=== PATIENT | male | born 1985 | race Caucasian/White ===

== ENCOUNTER 2016-07-11 14:45 | Emergency (ER) | payer SELFPAY ==
[~2016-07-11] VITALS: Ht 182.9 cm; Wt 93.9 kg
[2016-07-11 15:01] VITALS: BP 128/72
--- NOTE | 2016-07-11 18:14 | NUR ---
PATIENT LEFT WITHOUT BEING SEEN BY DR. JOHNSON. NO FURTHER CARE PROVIDED FOR PATIENT.
== END 2016-07-11 18:14 | disposition left against medical advice (07) ==
LOC: MED 14:45
DX: R05 Cough (principal); R07.89 Other chest pain; M25.519 Pain in unspecified shoulder; Z53.21 Procedure and treatment not carried out due to patient leaving prior to being seen by health care provider

== ENCOUNTER 2016-09-22 19:39 | Emergency (ER) | payer SELFPAY ==
[~2016-09-22] VITALS: Ht 185.4 cm; Wt 91.2 kg
[2016-09-22 20:30] VITALS: BP 121/76
--- NOTE | 2016-09-22 22:36 | NUR ---
PATIENT LEFT WITHOUT BEING SEEN BY DR. BERMAN. NO FURTHER CARE PROVIDED FOR PATIENT.
== END 2016-09-22 22:36 | disposition left against medical advice (07) ==
LOC: MED 19:39
DX: M25.511 Pain in right shoulder (principal); Z53.21 Procedure and treatment not carried out due to patient leaving prior to being seen by health care provider

== ENCOUNTER 2020-04-07 19:04 | Emergency (ER) | payer MEDICAID ==
[~2020-04-07] VITALS: Ht 180.3 cm; Wt 103.9 kg
[2020-04-07 19:07] VITALS: BP 119/86
--- NOTE | 2020-04-07 19:18 | NUR ---
ERMD AT BEDSIDE FOR MEDICAL EVALUATION
[2020-04-07] MEDS ORDERED: KETOROLAC 15 MG/ML VIAL IM ONE (19:20)
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
[2020-04-07 20:04] VITALS: BP 119/86
--- NOTE | 2020-04-07 20:04 | NUR ---
Patient discharged with v/s stable. Written and verbal after care instructions given and explained. Patient verbalized understanding. Ambulatory with steady gait. All questions addressed prior to discharge. Advised to follow up with PMD.
== END 2020-04-07 20:06 | disposition home or self-care (01) ==
LOC: MED 19:04
DX: M54.5 Low back pain (principal); Z88.5 Allergy status to narcotic agent
CPT/HCPCS: 96372; 99283; J1885

== ENCOUNTER 2021-11-15 20:29 | Emergency (ER) | payer MEDICAID, OTHER ==
[~2021-11-15] VITALS: Ht 182.9 cm; Wt 95.3 kg
[2021-11-15 20:30] VITALS: BP 117/78
--- NOTE | 2021-11-15 20:30 | NUR ---
to bed ambulatory
[2021-11-15] MEDS ORDERED: TETRACAINE HCL/PF 0.5% OPTH 4 ML BTL OP ONE (21:00)
[2021-11-15] MEDS ORDERED: FLUORESCEIN OPTH STRIP 1 MG OP ONE (21:00)
--- NOTE | 2021-11-15 21:07 | NUR ---
ER MD at bedside for examination
[2021-11-15 21:40] VITALS: BP 117/78
--- NOTE | 2021-11-15 21:40 | NUR ---
Patient discharged. Written and verbal after care instructions given and explained. Patient verbalized understanding. Ambulatory with steady gait. ID band removed. All questions addressed prior to discharge. Advised to follow up with PMD.
== END 2021-11-15 21:40 | disposition home or self-care (01) ==
LOC: MED 20:29
DX: T15.11XA Foreign body in conjunctival sac, right eye, initial encounter (principal); J45.909 Unspecified asthma, uncomplicated; Z91.018 Allergy to other foods; Z88.5 Allergy status to narcotic agent; X58.XXXA Exposure to other specified factors, initial encounter; Y93.89 Activity, other specified; Y92.89 Other specified places as the place of occurrence of the external cause; Y99.8 Other external cause status
CPT/HCPCS: 67938; 99284

== ENCOUNTER 2022-01-18 19:16 | Emergency (ER) | payer OTHER ==
[~2022-01-18] VITALS: Ht 182.9 cm; Wt 99.8 kg
--- NOTE | 2022-01-18 19:49 | NUR ---
TO LOBBY FOLLOWING TRIAGE
--- NOTE | 2022-01-18 20:45 | NUR ---
Dr. Teran examining patient.
--- NOTE | 2022-01-18 21:11 | NUR ---
PT TAKEN TO CT
--- NOTE | 2022-01-18 21:19 | NUR ---
PT RETURN FROM CT
[2022-01-18 21:20] LABS: BASOPHILS % (AUTO) 0.6 % (0.0-2.0); EOSINOPHILS # (AUTO) 0.1 K/uL (0-0.4); EOSINOPHILS % (AUTO) 0.9 % (0.0-4.0); HEMATOCRIT 42.9 % (36-52); HEMOGLOBIN 14.7 g/dL (12.0-18.0); LYMPHOCYTES # (AUTO) 1.6 K/uL (2.0-11.5); LYMPHOCYTES % (AUTO) 22.3 % (20.5-51.1); MEAN CORPUSCULAR HEMOGLOBIN 29 pg (27-31); MEAN CORPUSCULAR HGB CONC 34 g/dL (33-37); MEAN CORPUSCULAR VOLUME 84.1 fL (80-94); MONOCYTES # (AUTO) 0.5 K/uL (0.8-1.0); MONOCYTES % (AUTO) 7.5 % (1.7-9.3); NEUTROPHILS % (AUTO) 68.7 % (42.2-75.2); PLATELET COUNT (AUTO) 232 K/uL (140-450); RED CELL DISTRIBUTION WIDTH 13.1 % (11.6-13.7); WHITE BLOOD COUNT (AUTO) 7.3 K/uL (4.8-10.8)
[2022-01-18 21:37] LABS: ALBUMIN 3.9 g/dL (3.4-5.0); CARBON DIOXIDE 30.3 mmol/L (21-32); CREATININE 1.2 mg/dL (0.6-1.3); POTASSIUM 4.3 mmol/L (3.5-5.1); TOTAL BILIRUBIN 0.6 mg/dL (0.0-1.0)
[2022-01-18] MEDS ORDERED: ONDA-188 PO (22:52)
[2022-01-18] MEDS ORDERED: IBUP-2213 PO (22:52)
--- NOTE | 2022-01-18 22:56 | NUR ---
Patient left without D/C papers.
== END 2022-01-18 22:56 | disposition home or self-care (01) ==
LOC: MED 19:16
DX: R10.9 Unspecified abdominal pain (principal)
CPT/HCPCS: 36415; 80053; 83605; 83690; 85025; 99284

== ENCOUNTER 2022-11-09 17:23 | Emergency (ER) | payer OTHER ==
[~2022-11-09] VITALS: Ht 180.3 cm; Wt 110.3 kg
[~2022-11-09 17:23] MED LIST: IBUP-2213 PO; ONDA-188 PO
[2022-11-09 17:39] VITALS: BP 108/63; PULSE 86; RESP 20; TEMP 98.4; O2SAT 96
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
--- NOTE | 2022-11-09 18:22 | NUR ---
Dr. Santillan evaluating patient at bedside.
[2022-11-09] MEDS ORDERED: ACETAMINOPHEN EXTRA STRENGTH 500 MG TAB PO ONE (18:30)
[2022-11-09] MEDS ORDERED: ACET-10509 PO (18:33)
--- NOTE | 2022-11-09 19:13 | NUR ---
Report given to KAELA Carmona for transfer of care.
--- NOTE | 2022-11-09 19:20 | NUR ---
Patient resting in bed, A/Ox4, chest rise and fall symmetrical, no c/o pain or s/s of distress, on monitor. Patient left arm assessed, patient has feeling in all fingers and thumb, wound color is pink, wound is warm to touch, no s/s of infection.
[2022-11-09 19:22] VITALS: BP 111/72; PULSE 81; RESP 18; TEMP 98.4; O2SAT 99
== END 2022-11-09 19:22 | disposition home or self-care (01) ==
LOC: MED 17:23
DX: M25.532 Pain in left wrist (principal); J45.909 Unspecified asthma, uncomplicated; Z48.00 Encounter for change or removal of nonsurgical wound dressing; Z88.5 Allergy status to narcotic agent; Z79.899 Other long term (current) drug therapy
CPT/HCPCS: 99282

== ENCOUNTER 2023-10-19 01:25 | Emergency (ER) | payer OTHER ==
[~2023-10-19] VITALS: Ht 180.3 cm; Wt 99.8 kg
[~2023-10-19 01:25] MED LIST changes: +ACET-10509 PO; +BACI-418 TP
[2023-10-19 02:20] VITALS: BP 103/74; PULSE 86; RESP 18; TEMP 97; O2SAT 98
[2023-10-19] MEDS: ACETAMINOPHEN EXTRA STRENGTH 500 MG TAB PO ONE (04:21)
[2023-10-19 05:42] VITALS: BP 103/74; PULSE 86; RESP 18; TEMP 97; O2SAT 98
== END 2023-10-19 05:42 | disposition home or self-care (01) ==
LOC: MED 01:25
DX: S02.2XXA Fracture of nasal bones, initial encounter for closed fracture (principal); S01.81XA Laceration without foreign body of other part of head, initial encounter; S01.01XA Laceration without foreign body of scalp, initial encounter; J45.909 Unspecified asthma, uncomplicated; Z79.1 Long term (current) use of non-steroidal anti-inflammatories (NSAID); Z79.899 Other long term (current) drug therapy; Z91.018 Allergy to other foods; Z88.5 Allergy status to narcotic agent; W01.0XXA Fall on same level from slipping, tripping and stumbling without subsequent striking against object, initial encounter; Y93.89 Activity, other specified; Y92.89 Other specified places as the place of occurrence of the external cause; Y99.8 Other external cause status
CPT/HCPCS: 12014; 12015; 70450; 99284

== ENCOUNTER 2023-12-25 16:42 | Emergency (ER) | payer OTHER ==
[~2023-12-25] VITALS: Ht 180.3 cm; Wt 108.4 kg
[~2023-12-25 16:42] MED LIST changes: -ACET-10509 PO; +ACET500T99 PO
[2023-12-25 16:58] VITALS: BP 118/79; PULSE 92; RESP 15; TEMP 98.2; O2SAT 97
[2023-12-26] MEDS ORDERED: IBUP-2213 PO (12:43)
[2023-12-26] MEDS ORDERED: CEPH-588 PO (12:43)
== END 2023-12-25 18:10 | disposition left against medical advice (07) ==
LOC: MED 16:42
DX: L03.011 Cellulitis of right finger (principal); J45.909 Unspecified asthma, uncomplicated; Z79.1 Long term (current) use of non-steroidal anti-inflammatories (NSAID); Z79.899 Other long term (current) drug therapy; Z88.5 Allergy status to narcotic agent
CPT/HCPCS: 99281

== ENCOUNTER 2023-12-26 12:20 | Emergency (ER) | payer OTHER ==
[~2023-12-26] VITALS: Ht 180.3 cm; Wt 108.9 kg
[2023-12-26 12:23] VITALS: BP 115/83; PULSE 85; RESP 22; TEMP 98.2; O2SAT 97
[2023-12-26] MEDS ORDERED: CEPH-588 PO (12:43)
[2023-12-26] MEDS ORDERED: IBUP-2213 PO (12:43)
[2023-12-26] MEDS ORDERED: LIDOCAINE MPF 1% 5 ML ONE (12:45)
[2023-12-26] MEDS ORDERED: cefTRIAXone 250 MG VIAL ONE (12:45)
[2023-12-26] MEDS: cefTRIAXone 250 MG in LIDOCAINE MPF 1% 0.9 ML IM ONE (12:56)
== END 2023-12-26 13:01 | disposition home or self-care (01) ==
LOC: MED 12:20
DX: L03.011 Cellulitis of right finger (principal); J45.909 Unspecified asthma, uncomplicated; Z79.899 Other long term (current) drug therapy; Z88.5 Allergy status to narcotic agent
CPT/HCPCS: 10060; 96372; 99283; J0696; J2001

== ENCOUNTER 2024-01-09 01:54 | Emergency (ER) | payer OTHER ==
[~2024-01-09] VITALS: Ht 180.3 cm; Wt 108.0 kg
[~2024-01-09 01:54] MED LIST changes: +CEPH-588 PO
[2024-01-09 01:57] VITALS: BP 121/78; PULSE 95; RESP 18; TEMP 98.9; O2SAT 96
[2024-01-09] MEDS ORDERED: LIDOCAINE/EPI 1% 1:100000 20 ML VIAL INJ ONE (02:44)
[2024-01-09] MEDS: LIDOCAINE/EPI 1% 1:100000 20 ML VIAL INJ ONE (02:45)
[2024-01-09 03:00] VITALS: BP 121/78; PULSE 95; RESP 18; TEMP 98.9; O2SAT 96
[2024-01-09] MEDS ORDERED: SULF-59 PO (03:06)
== END 2024-01-09 03:00 | disposition home or self-care (01) ==
LOC: MED 01:54
DX: L02.414 Cutaneous abscess of left upper limb (principal); J45.909 Unspecified asthma, uncomplicated; Z79.899 Other long term (current) drug therapy; Z88.5 Allergy status to narcotic agent
CPT/HCPCS: 10060; 99283; J2001

== ENCOUNTER 2024-01-20 15:39 | Inpatient (IN) | payer OTHER ==
[~2024-01-20] VITALS: Ht 180.3 cm; Wt 107.2 kg
[~2024-01-20 15:39] MED LIST changes: +SULF-59 PO
[2024-01-20 15:48] VITALS: BP 113/78; PULSE 95; RESP 14; TEMP 97.3; O2SAT 97
[2024-01-20] MEDS ORDERED: VANCOMYCIN 1,000 MG VIAL ONE (16:38)
[2024-01-20] MEDS: VANCOMYCIN 1,000 MG in DEXTROSE 5% 250 ML IV ONE (16:54)
[2024-01-20 17:01] LABS: BASOPHILS # (AUTO) 0.1 K/uL (0.00-0.22); BASOPHILS % (AUTO) 0.7 % (0.0-2.0); EOSINOPHILS # (AUTO) 0.2 K/uL (0-0.4); EOSINOPHILS % (AUTO) 1.5 % (0.0-4.0); HEMATOCRIT 40.1 % (36-52); HEMOGLOBIN 13.4 g/dL (12.0-18.0); LYMPHOCYTES # (AUTO) 1.6 K/uL (2.0-11.5); LYMPHOCYTES % (AUTO) 14.5 % (20.5-51.1); MEAN CORPUSCULAR HEMOGLOBIN 28 pg (27-31); MEAN CORPUSCULAR HGB CONC 34 g/dL (33-37); MEAN CORPUSCULAR VOLUME 83.6 fL (80-94); MONOCYTES # (AUTO) 0.9 K/uL (0.8-1.0); MONOCYTES % (AUTO) 7.8 % (1.7-9.3); NEUTROPHILS # (AUTO) 8.4 K/uL (1.8-7.7); NEUTROPHILS % (AUTO) 75.5 % (42.2-75.2); PLATELET COUNT (AUTO) 284 K/uL (140-450); RED BLOOD CELL COUNT(AUTO) 4.79 MIL/uL (4.20-6.10); RED CELL DISTRIBUTION WIDTH 12.5 % (11.6-13.7); WHITE BLOOD COUNT (AUTO) 11.2 K/uL (4.8-10.8)
[2024-01-20 17:20] LABS: ANION GAP 9.8 (8-16); CREATININE 1.2 mg/dL (0.6-1.3); POTASSIUM 3.8 mmol/L (3.5-5.1)
[2024-01-20 17:23] LABS: PARTIAL THROMBOPLASTIN TIME 26.1 secs (22-35.6); PROTHROMBIN TIME 10.5 secs (10.8-13.4)
[2024-01-20] MEDS ORDERED: NACL 0.9% 1,000 ML IV SCH (17:50)
[2024-01-20] MEDS ORDERED: ZOLPIDEM 5 MG TAB PO PRN (17:50)
[2024-01-20] MEDS ORDERED: ACETAMINOPHEN 325 MG TAB PO PRN (17:50)
[2024-01-20] MEDS ORDERED: KCL 20 MEQ IN 100 mL PREMIX 200 ML IV PRN (17:50)
[2024-01-20] MEDS ORDERED: HYDROcodone/APAP 5/325 MG 1 TAB TAB PO PRN (17:50)
[2024-01-20] MEDS ORDERED: POTASSIUM CHLORIDE 10 MEQ TABER PO PRN (17:50)
[2024-01-20] MEDS ORDERED: VANCOMYCIN PER PHARMACY MC PRN (17:50)
[2024-01-20] MEDS ORDERED: cefTRIAXone 1,000 MG VIAL ONE (18:13)
[2024-01-20 18:20] VITALS: BP 130/70; PULSE 96; RESP 14; TEMP 97.3; O2SAT 96
[2024-01-21] MEDS ORDERED: VANCOMYCIN 1.25GM PREMIX 250 ML IV SCH (01:00)
[2024-01-21] MEDS ORDERED: ENOXAPARIN 40 MG/0.4 ML SYR SUBQ SCH (09:00)
== END 2024-01-20 18:30 | disposition left against medical advice (07) | DRG 383 ==
LOC: MED 15:39 → MTU 17:50 → MMU 17:50 → MTU 18:29
PROVIDERS: ADMIT Hospitalist; ATTEND Hospitalist
DX: L03.113 Cellulitis of right upper limb (principal); F11.90 Opioid use, unspecified, uncomplicated; J45.909 Unspecified asthma, uncomplicated; Z91.018 Allergy to other foods; Z88.5 Allergy status to narcotic agent; Z79.899 Other long term (current) drug therapy
CPT/HCPCS: 36415; 73201; 80048; 83605; 85025; 85610; 85730; 87040; J0696; J3370; J3372; J7060

== ENCOUNTER 2024-01-21 00:19 | Inpatient (IN) | payer OTHER ==
[~2024-01-21] VITALS: Ht 180.3 cm; Wt 105.2 kg
[2024-01-21 00:23] VITALS: BP 110/67; PULSE 69; RESP 20; TEMP 98.5; O2SAT 96
[2024-01-21 03:27] VITALS: O2SAT 96
[2024-01-21] MEDS ORDERED: VANCOMYCIN PER PHARMACY MC PRN (05:10)
[2024-01-21] MEDS ORDERED: MORPHINE SULFATE 4 MG/ML SYR IVP PRN (05:10)
[2024-01-21] MEDS ORDERED: ACETAMINOPHEN 325 MG TAB PO PRN (05:10)
[2024-01-21] MEDS ORDERED: POTASSIUM CHLORIDE 10 MEQ TABER PO PRN (05:10)
[2024-01-21] MEDS ORDERED: MAG SULF 2000 MG/WATER PREMIX 50 ML IV PRN (05:10)
[2024-01-21] MEDS ORDERED: MAGNESIUM OXIDE 400 MG TAB PO PRN (05:10)
[2024-01-21] MEDS ORDERED: ONDANSETRON 4 MG/2 ML VIAL IVP PRN (05:10)
[2024-01-21] MEDS ORDERED: KCL 20 MEQ IN 100 mL PREMIX 200 ML IV PRN (05:10)
[2024-01-21] MEDS ORDERED: HYDROcodone/APAP 5/325 MG 1 TAB TAB PO PRN (05:10)
[2024-01-21 05:31] VITALS: O2SAT 96
[2024-01-21 07:33] VITALS: TEMP 97.3
[2024-01-21 07:50] VITALS: BP 109/61; PULSE 71; RESP 17; O2SAT 98
[2024-01-21] MEDS ORDERED: MEDS-TO-BEDS MC SCH (09:00)
[2024-01-21] MEDS ORDERED: DOCUSATE SODIUM 100 MG GELCAP PO SCH (09:00)
[2024-01-21] MEDS ORDERED: VANCOMYCIN 1.25GM PREMIX 250 ML IV SCH (10:00)
== END 2024-01-21 11:00 | disposition left against medical advice (07) | DRG 383 ==
LOC: MED 00:19 → MTU 05:09
PROVIDERS: ADMIT Hospitalist; ATTEND Hospitalist
DX: L03.113 Cellulitis of right upper limb (principal); Z53.29 Procedure and treatment not carried out because of patient's decision for other reasons; L02.413 Cutaneous abscess of right upper limb; Z79.899 Other long term (current) drug therapy; Z88.5 Allergy status to narcotic agent
CPT/HCPCS: J1644; J3372

== ENCOUNTER 2024-01-23 00:04 | Inpatient (IN) | payer OTHER ==
[2024-01-23] VITALS (7 sets, daily range): BP systolic 116–150; BP diastolic 65–78; PULSE 72–88; RESP 16–18; TEMP 96.6–98.1; O2SAT 95–97
[~2024-01-23] VITALS: Ht 180.3 cm; Wt 105.7 kg
[2024-01-23] MEDS ORDERED: VANCOMYCIN 1,000 MG VIAL ONE (02:23)
[2024-01-23 02:30] LABS: BASOPHILS # (AUTO) 0.1 K/uL (0.00-0.22); BASOPHILS % (AUTO) 1.2 % (0.0-2.0); EOSINOPHILS # (AUTO) 0.2 K/uL (0-0.4); EOSINOPHILS % (AUTO) 2.6 % (0.0-4.0); HEMATOCRIT 38.9 % (36-52); HEMOGLOBIN 13.1 g/dL (12.0-18.0); LYMPHOCYTES # (AUTO) 1.5 K/uL (2.0-11.5); LYMPHOCYTES % (AUTO) 17.1 % (20.5-51.1); MEAN CORPUSCULAR HEMOGLOBIN 28 pg (27-31); MEAN CORPUSCULAR HGB CONC 34 g/dL (33-37); MEAN CORPUSCULAR VOLUME 83.4 fL (80-94); MONOCYTES # (AUTO) 0.8 K/uL (0.8-1.0); MONOCYTES % (AUTO) 8.6 % (1.7-9.3); NEUTROPHILS # (AUTO) 6.3 K/uL (1.8-7.7); NEUTROPHILS % (AUTO) 70.5 % (42.2-75.2); PLATELET COUNT (AUTO) 304 K/uL (140-450); RED BLOOD CELL COUNT(AUTO) 4.67 MIL/uL (4.20-6.10); RED CELL DISTRIBUTION WIDTH 12.5 % (11.6-13.7); WHITE BLOOD COUNT (AUTO) 8.9 K/uL (4.8-10.8)
[2024-01-23] MEDS ORDERED: ZOLPIDEM 5 MG TAB PO PRN (02:30)
[2024-01-23] MEDS ORDERED: HYDROcodone/APAP 5/325 MG 1 TAB TAB PO PRN (02:30)
[2024-01-23] MEDS ORDERED: LORazepam 1 MG TAB PO PRN (02:30)
[2024-01-23] MEDS ORDERED: ONDANSETRON 4 MG/2 ML VIAL IVP PRN ×2 (02:30→09:00)
[2024-01-23] MEDS ORDERED: ACETAMINOPHEN 325 MG TAB PO PRN (02:30)
[2024-01-23] MEDS ORDERED: VANCOMYCIN PER PHARMACY MC PRN (02:30)
[2024-01-23] MEDS ORDERED: HYDROmorphone 1 MG/ML AMP IVP PRN ×2 (02:30→09:00)
[2024-01-23] MEDS: VANCOMYCIN 1,000 MG in DEXTROSE 5% 250 ML IV ONE (02:33)
[2024-01-23 02:54] LABS: CALCIUM 8.9 mg/dL (8.5-10.1); CARBON DIOXIDE 28.3 mmol/L (21-32); CREATININE 1.3 mg/dL (0.6-1.3); POTASSIUM 4.3 mmol/L (3.5-5.1)
[2024-01-23] MEDS: LACTATED RINGERS 1,000 ML IV SCH (03:36)
[2024-01-23] MEDS: NACL 0.9% 1,000 ML IV SCH (03:36)
[2024-01-23] MEDS: MEDS-TO-BEDS MC SCH (08:25)
[2024-01-23] MEDS: ENOXAPARIN 40 MG/0.4 ML SYR SUBQ SCH (08:36)
[2024-01-23] MEDS: DOCUSATE SODIUM 100 MG GELCAP PO SCH (08:36)
[2024-01-23] MEDS ORDERED: MEPERIDINE 25 MG/ML SYR IVP PRN (09:00)
[2024-01-23] MEDS ORDERED: SEVOFLURANE 250 ML BTL INH ONE (09:00)
[2024-01-23] MEDS: fentaNYL citrate 0.05 MG/ML VIAL ONE (09:38)
[2024-01-23] MEDS: PROPOFOL 200 MG/20 ML VIAL IV ONE ×4 (09:40)
[2024-01-23] MEDS: METOCLOPRAMIDE 10 MG/2 ML INJ VIAL ONE (09:40)
[2024-01-23] MEDS: LIDOCAINE 2% 100 MG/5 ML SYR IVP ONE (09:41)
[2024-01-23] MEDS: BUPIVACAINE-MPF 0.25% 30 ML VIAL INJ ONE (09:41)
[2024-01-23] MEDS: LIDOCAINE/EPI 1% 1:100000 20 ML VIAL INJ ONE (09:41)
[2024-01-23] MEDS: ONDANSETRON 4 MG/2 ML VIAL ONE (09:41)
[2024-01-23] MEDS: HYDROmorphone PFS 2 MG/ML SYR ONE (09:41)
[2024-01-23] MEDS ORDERED: VANCOMYCIN HCL 1.25 GM in DEXTROSE 5% 250 ML IV SCH (14:00)
[2024-01-23] MEDS: VANCOMYCIN 1.25GM PREMIX 250 ML IV SCH (14:02)
[2024-01-23] MEDS ORDERED: DOXY-690 PO (17:10)
== END 2024-01-23 16:06 | disposition left against medical advice (07) | DRG 364 ==
LOC: MED 00:04 → MTU 02:34
PROVIDERS: ADMIT Hospitalist; ATTEND Hospitalist
PROC: 0J9G0ZZ Drainage of Right Lower Arm Subcutaneous Tissue and Fascia, Open Approach (ICD-10-PCS; principal; 2024-01-23 08:50)
DX: L02.511 Cutaneous abscess of right hand (principal); E87.1 Hypo-osmolality and hyponatremia; J45.909 Unspecified asthma, uncomplicated; Z53.29 Procedure and treatment not carried out because of patient's decision for other reasons; Z87.891 Personal history of nicotine dependence; Z88.5 Allergy status to narcotic agent; Z79.899 Other long term (current) drug therapy; Z91.018 Allergy to other foods; Z91.148 Patient's other noncompliance with medication regimen for other reason
CPT/HCPCS: 36415; 73201; 80048; 85025; 87040; 87070; 87075; 87081; 87205; 96365; 99285; J1170; J1650; J2001; J2405; J2704; J2765; J3010; J3370; J3372; J3490; J7030; J7060; J7120; Q9967